=== PATIENT | male | born 1960 | race Two or more races ===

== ENCOUNTER 2017-05-08 19:26 | Inpatient (IN) | payer OTHER ==
[~2017-05-08] VITALS: Ht 154.9 cm; Wt 63.5 kg
[~2017-05-08 19:26] MED LIST: FURO-570 PO; METO-50 PO; POTA10TA10 PO
[2017-05-08 19:58] VITALS: BP 135/83
--- NOTE | 2017-05-08 21:14 | NUR ---
TO ER BED 8
[2017-05-08] MEDS ORDERED: NACL 0.9% 1,000 ML IV ONE (21:15)
[2017-05-08 21:43] LABS: BASOPHILS # (AUTO) 0.6 K/uL (0.00-0.22); EOSINOPHILS # (AUTO) 0.3 K/uL (0-0.4); HEMATOCRIT 43.6 % (36-52); HEMOGLOBIN 14.3 g/dL (12.0-18.0); LYMPHOCYTES # (AUTO) 0.8 K/uL (2.0-11.5); MEAN CORPUSCULAR HEMOGLOBIN 30 pg (27-31); MEAN CORPUSCULAR HGB CONC 33 g/dL (33-37); MEAN CORPUSCULAR VOLUME 91 fL (80-94); MONOCYTES # (AUTO) 0.5 K/uL (0.8-1.0); NEUTROPHILS # (AUTO) 12.4 K/uL (1.8-7.7); PLATELET COUNT (AUTO) 170 K/uL (140-450); RED BLOOD CELL COUNT(AUTO) 4.78 MIL/uL (4.20-6.10); RED CELL DISTRIBUTION WIDTH 13.6 % (11.6-13.7); WHITE BLOOD COUNT (AUTO) 14.6 K/uL (4.8-10.8)
[2017-05-08] MEDS ORDERED: CLINDAMYCIN 900 MG in DEXTROSE 5% 100 ML IV ONE (21:50)
[2017-05-08 21:58] LABS: ANION GAP 18.1 (8-16); CARBON DIOXIDE 22.1 mmol/L (21-32); CREATININE 1.8 mg/dL (0.7-1.3); POTASSIUM 4.2 mmol/L (3.5-5.1)
[2017-05-08 22:05] LABS: PROTHROMBIN TIME 10.4 secs (10.8-13.4)
[2017-05-08] MEDS ORDERED: CLINDAMYCIN 900 MG/6 ML VIAL IV ONE (22:06)
[2017-05-08 22:10] LABS: TOTAL BILIRUBIN 1.3 mg/dL (0.0-1.0)
--- NOTE | 2017-05-08 22:12 | NUR ---
PATIENT PRESENTS TO ED WITH C/O CHRONIC COUGH, TODAY GET WORSE. HX. COPD, MD, PNEUMONIA PT DENIES N/V/D; SKIN IS PINK/WARM/DRY; AAOX4 WITH EVEN AND STEADY GAIT; LUNGS CLEAR BL; HR EVEN AND REGULAR; PT DENIES ANY FEVER, CP OR SOB AT THIS TIME; PATIENT STATES PAIN OF 6/10 AT THIS TIME; VSS; PATIENT POSITIONED FOR COMFORT; HOB ELEVATED; BEDRAILS UP X2; BED DOWN. ER MD MADE AWARE OF PT STATUS.
[2017-05-08] MEDS ORDERED: MORPHINE SULFATE 2 MG/ML SYR IVP ONE (22:25)
[2017-05-08] MEDS ORDERED: ONDANSETRON 4 MG/2 ML VIAL IVP PRN (22:30)
[2017-05-08] MEDS ORDERED: INSULIN LISPRO SLIDING SCALE 100 UNITS/ML VIAL SUBQ PRN (22:30)
[2017-05-08] MEDS ORDERED: ACETAMINOPHEN 325 MG TAB PO PRN (22:30)
[2017-05-08] MEDS ORDERED: MORPHINE SULFATE 2 MG/ML SYR IVP PRN (22:30)
--- NOTE | 2017-05-08 22:46 | NUR ---
PT C/O HEADACHE, MED GIVEN.
--- NOTE | 2017-05-08 23:07 | NUR ---
Patient will be admitted to care of DR CAN. Admited to TELE. Will go to room 111A. Belongings list completed. Report to PATRICIA REHMAN.
[2017-05-08 23:30] VITALS: BP 132/76
--- NOTE | 2017-05-09 00:14 | NUR ---
Admitted from ER TO TELEMETRY UNIT, with chief complaint of CHEST PAIN, COUGH FOR 3 DAYS,56 y/o ,Male, Cooperative, AWAKE, A/OX4. RESPIRATION EVEN AND UNLABORED. LUNGS CLEAR ON BILATERAL AUSCULTATION, WITH PRODUCTIVE COUGHING, NOTED MODERATE AMOUNT OF YELLOW PHLEGM. 02 SAT - 98% ON ROOM AIR. WITH DEFIBRILLATOR AT THE LEFT CHEST. IV OF NS AT 100 ML/HR INFUSING RIGHT FOREARM G22. HEAD TO TOE ASSESSMENT DONE WITH ELAINE RN, SKIN INTACT. SR WITH ST DEPRESSION ON TELEMETRY MONITORING. DENIES PAIN 0/10. PLAN OF CARE FOR THE SHIFT DISCUSSED. VERBALIZED UNDERSTANDING. oriented to call light, bed, phone,television, bathroom, smoking policy, visiting hours, procedures, ID bracelet on. Belongings list checked.
--- NOTE | 2017-05-09 00:40 | NUR ---
IV SITE SLIGHTLY SWOLLEN, NEW IV LINE INSERTED BY PATRICIA HENRY AT THE RIGHT FOREARM G 22.
--- NOTE | 2017-05-09 01:00 | NUR ---
SANDWICH GIVEN WITH JUICES, ATE 70%, WARM BLANKETS GIVEN. MADE COMFORTABLE IN BED. INSTRUCTED TO CALL NURSE WHEN NEEDING HELP. VERBALIZED UNDERSTANDING.
[2017-05-09] MEDS ORDERED: AZITHROMYCIN 500 MG INJ VIAL IV ONE (01:25)
[2017-05-09] MEDS: AZITHROMYCIN 500 MG in DEXTROSE 5% 250 ML IV SCH ×2 (02:07→22:37)
--- NOTE | 2017-05-09 02:21 | NUR ---
Patient's Plan of Care was discussed and reviewed with PARKING SUPERVISOR: GARDENIA GILMORE
[2017-05-09 04:00] VITALS: BP 100/51
[2017-05-09 06:23] LABS: BASOPHILS # (AUTO) 0.1 K/uL (0.00-0.22); BASOPHILS % (AUTO) 1.4 % (0.0-2.0); EOSINOPHILS # (AUTO) 0.1 K/uL (0-0.4); EOSINOPHILS % (AUTO) 0.9 % (0.0-4.0); HEMATOCRIT 41.7 % (36-52); HEMOGLOBIN 13.4 g/dL (12.0-18.0); LYMPHOCYTES # (AUTO) 0.9 K/uL (2.0-11.5); LYMPHOCYTES % (AUTO) 8.7 % (20.5-51.1); MEAN CORPUSCULAR HEMOGLOBIN 30 pg (27-31); MEAN CORPUSCULAR HGB CONC 32 g/dL (33-37); MEAN CORPUSCULAR VOLUME 92 fL (80-94); MONOCYTES # (AUTO) 1.1 K/uL (0.8-1.0); MONOCYTES % (AUTO) 10.8 % (1.7-9.3); NEUTROPHILS # (AUTO) 8.2 K/uL (1.8-7.7); NEUTROPHILS % (AUTO) 78.2 % (42.2-75.2); PLATELET COUNT (AUTO) 161 K/uL (140-450); RED BLOOD CELL COUNT(AUTO) 4.55 MIL/uL (4.20-6.10); RED CELL DISTRIBUTION WIDTH 13.9 % (11.6-13.7)
[2017-05-09 06:44] LABS: ALBUMIN 3.4 g/dL (3.4-5.0); ANION GAP 13.8 (8-16); CARBON DIOXIDE 24.7 mmol/L (21-32); CREATININE 1.6 mg/dL (0.7-1.3); POTASSIUM 4.5 mmol/L (3.5-5.1); TOTAL BILIRUBIN 1.1 mg/dL (0.0-1.0)
[2017-05-09 06:53] LABS: CREATINE KINASE MB 0.8 ng/mL (0-3.6)
[2017-05-09 07:12] LABS: WHITE BLOOD COUNT (AUTO) 10.4 K/uL (4.8-10.8)
--- NOTE | 2017-05-09 07:29 | NUR ---
RECEIVED PT IN BED. ASLEEP. AROUSABLE TO VOICE. ALERT ORIENTEDX4. NO SOB NOTED. DENIES ANY PAIN OR DISCOMFORT AT THIS TIME. PT AMBULATORY. POSITIVE BOWEL SOUNDS NOTED ON FOUR QUADRANTS. SAFETY PRECAUTION IN PLACE. CALL LIGHT WITHIN REACH.
[2017-05-09 08:00] VITALS: BP 110/62
[2017-05-09] MEDS: ASPIRIN 81 MG TAB.CHEW PO SCH (08:16)
[2017-05-09] MEDS: POTASSIUM CHLORIDE 10 MEQ TABER PO SCH (08:16)
[2017-05-09 09:00] VITALS: BP 103/59
[2017-05-09] MEDS: METOPROLOL 50 MG TAB PO SCH (09:00)
[2017-05-09] MEDS ORDERED: FUROSEMIDE 40 MG TAB PO SCH (09:00)
--- NOTE | 2017-05-09 11:01 | NUR ---
CM NOTE INITIAL REVIEW FAXED TO [facility] [phone] SRIRAM [phone]
--- NOTE | 2017-05-09 11:35 | NUR ---
PATIENT HAS BEEN SCREENED AND CATEGORIZED MODERATE NUTRITION RISK. PATIENT WILL BE SEEN WITHIN 3-5 DAYS OF ADMISSION. 05/11/17-05/13/[address]
--- NOTE | 2017-05-09 11:38 | NUR ---
PAGED DR. CAN FOR AN ORDER FOR IVF AND DIET CHANGE SINCE PT SAID HE IS NOT DIABETIC AND CURRENTLY ON [facility] DIET, AND TO DC INSULIN SLIDING SCALE. AWAITING CALL BACK.
[2017-05-09 12:00] VITALS: BP 113/70
--- NOTE | 2017-05-09 12:05 | NUR ---
DR. CAN CALLED BACK HE SAID THAT HE WILL BE HERE IN THE NEXT COUPLE OF HOURS TO SEE PT
--- NOTE | 2017-05-09 13:11 | NUR ---
DR. CAN AGREED TO CHANGE THE DIET OF PT TO CARDIAC SINCE PT IS NOT DIABETIC. AND TO DC INSULIN SLIDING SCALE, WITH TORB ORDERS MADE AND CARRIED OUT.
[2017-05-09] MEDS: NACL 0.9% 1,000 ML IV SCH (14:05)
[2017-05-09 14:08] LABS: CREATINE KINASE MB 1.2 ng/mL (0-3.6)
--- NOTE | 2017-05-09 15:00 | NUR ---
PATIENT LAYING IN BED RESTING. NO ACUTE DISTRESS NOTED AT THIS TIME.
[2017-05-09 16:00] VITALS: BP 117/76
[2017-05-09] MEDS: ACETAMINOPHEN 325 MG TAB PO PRN (16:10)
[2017-05-09] MEDS: ALBUTEROL SULFATE/IPRATROPIU 3 ML SOL IH SCH (19:06)
--- NOTE | 2017-05-09 19:35 | NUR ---
PT KEPT CLEAN DRY AND COMFORTABLE, NEEDS ATTENDED ENDORSED TO NEXT SHIFT ON STABLE CONDITION FOR CONTINUITY OF CARE.
--- NOTE | 2017-05-09 19:36 | NUR ---
RECD RESTING IN BED, AWAKE, A/OX4. RESPIRATION EVEN AND UNLABORED. 02 SAT 97% AT ROOM AIR. IV OF NS INFUSING AT 60 ML/HR, RIGHT FOREARM G 22. STATED STILL WITH PRODUCTIVE COUGHING OF SMALL AMOUNT OF YELLOW PHLEGM, BREATHING TREATMENT HELPS BUT WANTS COUGH MEDICINE, WILL INFORM MD. EXPLAINED THE IMPORTANCE OF BILATERAL LEG SEQUENTIALS BUT REFUSED TO PUT IT ON. INSTRUCTED TO DO DEEP BREATHING AND ALTERNATELY TURN TO SIDES. PLAN OF CARE FOR THE SHIFT DISCUSSED. VERBALIZED UNDERSTANDING. DENIES PAIN 0/10.
[2017-05-09 20:00] VITALS: BP 120/69
--- NOTE | 2017-05-09 21:00 | NUR ---
Patient's Plan of Care was discussed and reviewed with MIXING PLACE SUPERVISOR: GARDENIA GILMORE
--- NOTE | 2017-05-09 22:37 | NUR ---
AZITHROMYCIN GIVEN BY RN ORDERED, TOLERATED WELL.
[2017-05-09] MEDS ORDERED: guaiFENesin 20 MG/ML UDC PO PRN ×2 (23:10)
[2017-05-10] VITALS: BP 100/57
--- NOTE | 2017-05-10 | NUR ---
RESTING IN BED, INQUIRED IF HE WANTS COUGH MEDICATION, DOES NOT WANT AT THIS TIME.
[2017-05-10] MEDS: ALBUTEROL SULFATE/IPRATROPIU 3 ML SOL IH SCH ×2 (01:28→07:27)
[2017-05-10 04:00] VITALS: BP 116/65
--- NOTE | 2017-05-10 04:00 | NUR ---
NO RESPIRATORY DISTRESS NOTED. SLEEPING COMFORTABLY IN BED.
[2017-05-10] MEDS: NACL 0.9% 1,000 ML IV SCH ×2 (06:05→08:40)
--- NOTE | 2017-05-10 07:00 | NUR ---
CONDITION REMAIN STABLE. ABLE TO SLEPT WELL. WILL ENDORSE TO AM NURSE FOR CONTINUITY OF CARE.
--- NOTE | 2017-05-10 07:42 | NUR ---
RECEIVED PT IN BED. ASLEEP. AROUSABLE TO VOICE. ALERT ORIENTED X4. NO SOB NOTED. DENIES ANY PAIN OR DISCOMFORT AT THIS TIME. POSITIVE BOWEL SOUND NOTED ON FOUR QUADRANTS. SAFETY PRECAUTION IN PLACE. CALL LIGHT WITHIN REACH.
[2017-05-10 08:00] VITALS: BP 102/55
[2017-05-10] MEDS: METOPROLOL 50 MG TAB PO SCH (08:35)
[2017-05-10] MEDS: POTASSIUM CHLORIDE 10 MEQ TABER PO SCH (08:40)
[2017-05-10] MEDS: ASPIRIN 81 MG TAB.CHEW PO SCH (08:40)
[2017-05-10] MEDS: ACETAMINOPHEN 325 MG TAB PO PRN (08:47)
[2017-05-10] MEDS ORDERED: ENOXAPARIN 30 MG/0.3 ML SYR SUBQ SCH (09:00)
--- NOTE | 2017-05-10 09:06 | NUR ---
AMALIA, OF PT CALLED AND SAID SHE JUST SPOKE WITH PT AND PT WAS HAVING DIFFICULTY BREATHING. CHECKED ON PT. O2 SAT AT 97%, SATING ON ROOM AIR. PT IN BED, QUIET, NO LABORED BREATHING NORMAL, RR 17. PTTRYING TO SLEEP. NO SIGNS OF ACUTE PAIN OR DISTRESS NOTED AT THIS TIME. SOME CONGESTION NOTED BECAUSE OF HIS INTERMITTENT COUGH. WILL ADMINISTER PRN COUGH MEDICATION AND WILL CONTINUE TO MONITOR.
--- NOTE | 2017-05-10 10:05 | NUR ---
CHECKED ON PT. PT ASLEEP AROUSABLE TO VOICE. PT VERBALIZED RELIEF FROM HEADACHE WITH A PAIN SCALE OF 0/10. NO SOB NOTED. PT DENIES ANY PAIN OR DISCOMFORT AT THIS TIME.
[2017-05-10 12:00] VITALS: BP 95/58
[2017-05-10 16:00] VITALS: BP 126/77
--- NOTE | 2017-05-10 16:30 | NUR ---
DR. CAN CAME TO SEE PT.
[2017-05-10] MEDS ORDERED: LEVO750T2 PO ×2 (16:56→17:02)
[2017-05-10] MEDS ORDERED: ATRMDI IH (17:03)
--- NOTE | 2017-05-10 17:29 | NUR ---
DISCHARGE INSTRUCTIONS AND HEALTH TEACHINGS PROVIDED AND EXPLAINED TO PT. PT VERBALIZED UNDERSTANDING. PROVIDED WITH DISCHARGE PACKET. REMINDED TO FOLLOW UP WITH PCP WITHIN 1 WEEK. PRESCRIPTIONS GIVEN. EXPLAINED TO TAKE PRESCRIBED ANTIBIOTIC AND TO FINISH THE ORDER. PT SIGNED DISCHARGE PARES.IV CANNULA REMOVED AND INTACT. TELEBOX REMOVED. AWAITING TO LIFE CONSULTANT PT. NO SOB NOTED. DENIES ANY PAIN OR DISCOMFORT AT THIS TIME.
--- NOTE | 2017-05-10 17:45 | NUR ---
OF PT CAME TO STUDENT TEACHER PT. NAME ARM BAND REMOVED. NO SOB NOTED AT THIS TIME. DENIES ANY PAIN OR DISCOMFORT AT HIS TIME. PT WHEELED OUT GOING TO THE HOSPITAL PARKING LOT PER CHANNEL PROGRAM MANAGER ASSISTANCE, TO THEIR PRIVATE OWNED VEHICLE. PT DISCHARGED ON STABLE CONDITION.
== END 2017-05-10 17:45 | disposition home or self-care (01) | DRG 140 ==
LOC: MED 19:26 → MTU 22:36
PROVIDERS: ADMIT Internal Medicine Pulmonary Disease; ATTEND Internal Medicine Pulmonary Disease
DX: J44.1 Chronic obstructive pulmonary disease with (acute) exacerbation (principal); I50.23 Acute on chronic systolic (congestive) heart failure; N17.9 Acute kidney failure, unspecified; I42.9 Cardiomyopathy, unspecified; N19 Unspecified kidney failure; T50.1X5A Adverse effect of loop [high-ceiling] diuretics, initial encounter; I11.0 Hypertensive heart disease with heart failure; J40 Bronchitis, not specified as acute or chronic; F17.210 Nicotine dependence, cigarettes, uncomplicated; D72.829 Elevated white blood cell count, unspecified; R07.81 Pleurodynia; Y92.89 Other specified places as the place of occurrence of the external cause; Z88.0 Allergy status to penicillin; Z95.810 Presence of automatic (implantable) cardiac defibrillator; Z71.6 Tobacco abuse counseling
CPT/HCPCS: 36415; 71010; 80053; 82550; 82553; 83605; 84484; 85025; 85610; 85730; 87040; 87081; 93005; 94640; 96365; 96375; 99285; J0456; J0696; J1644; J1650; J1815; J2270; J3490; J7030; J7060; J7620